=== PATIENT | male | born 1995 | race Two or more races ===

== ENCOUNTER 2018-04-18 16:07 | Emergency (ER) | payer MEDICAID, OTHER ==
[~2018-04-18] VITALS: Ht 175.3 cm; Wt 93.0 kg
[2018-04-18 16:18] VITALS: BP 127/51
== END 2018-04-18 17:46 | disposition home or self-care (01) ==
LOC: ER 16:11
DX: S39.011A Strain of muscle, fascia and tendon of abdomen, initial encounter (principal); S16.1XXA Strain of muscle, fascia and tendon at neck level, initial encounter; S01.03XA Puncture wound without foreign body of scalp, initial encounter; V47.6XXA Car passenger injured in collision with fixed or stationary object in traffic accident, initial encounter; Y93.89 Activity, other specified; Y99.8 Other external cause status; Y92.89 Other specified places as the place of occurrence of the external cause
CPT/HCPCS: 70450; 72125; 74176